=== PATIENT | male | born 1985 | race Caucasian/White ===

== ENCOUNTER 2016-11-13 07:43 | Emergency (ER) | payer OTHER ==
[~2016-11-13] VITALS: Ht 175.3 cm; Wt 79.4 kg
[~2016-11-13 07:43] MED LIST: IBUPROFEN 600600 M1 PO; NEXIUM40 MG PO; NORCO 5-325 TA1 EACH PO
[2016-11-13] MEDS ORDERED: FLEXERIL PO (09:03)
[2016-11-13 09:12] VITALS: BP 152/64
== END 2016-11-13 09:14 | disposition home or self-care (01) ==
LOC: ER 07:43
DX: M54.2 Cervicalgia (principal); F17.210 Nicotine dependence, cigarettes, uncomplicated; F10.99 Alcohol use, unspecified with unspecified alcohol-induced disorder; Z88.2 Allergy status to sulfonamides; V49.9XXA Car occupant (driver) (passenger) injured in unspecified traffic accident, initial encounter; Y93.89 Activity, other specified; Y92.89 Other specified places as the place of occurrence of the external cause; Y99.8 Other external cause status

== ENCOUNTER → 2016-12-11 | Outpatient (CLI) | payer OTHER ==
[~2016-12-11] MED LIST changes: +FLEXERIL PO
== END ==
LOC: RAD 16:35
DX: M54.5 Low back pain (principal)

== ENCOUNTER 2017-03-31 08:01 | Emergency (ER) | payer OTHER ==
[~2017-03-31] VITALS: Ht 177.8 cm; Wt 77.1 kg
[2017-03-31 08:08] VITALS: BP 121/77
[2017-03-31] MEDS ORDERED: NORCO 5-325 TA1 EACH PO (08:25)
== END 2017-03-31 08:50 | disposition home or self-care (01) ==
LOC: ER 08:01
DX: S49.92XA Unspecified injury of left shoulder and upper arm, initial encounter (principal); W19.XXXA Unspecified fall, initial encounter; Y93.89 Activity, other specified; Y92.89 Other specified places as the place of occurrence of the external cause; Y99.8 Other external cause status; F17.210 Nicotine dependence, cigarettes, uncomplicated; Z88.2 Allergy status to sulfonamides

== ENCOUNTER 2017-12-25 09:10 | Emergency (ER) | payer OTHER ==
[~2017-12-25] VITALS: Ht 180.3 cm; Wt 77.1 kg
[2017-12-25] MEDS ORDERED: MOBIC7.5 MG PO (10:14)
[2017-12-25 11:03] VITALS: BP 152/98
== END 2017-12-25 10:40 | disposition home or self-care (01) ==
LOC: ER 09:10
DX: S20.212A Contusion of left front wall of thorax, initial encounter (principal); W01.0XXA Fall on same level from slipping, tripping and stumbling without subsequent striking against object, initial encounter; Y93.89 Activity, other specified; Y92.89 Other specified places as the place of occurrence of the external cause; Y99.8 Other external cause status; F17.210 Nicotine dependence, cigarettes, uncomplicated; Z88.2 Allergy status to sulfonamides